=== PATIENT | male | born 1995 | race Two or more races ===

== ENCOUNTER 2021-07-17 10:41 | Emergency (ER) | payer MEDICAID, OTHER ==
[~2021-07-17] VITALS: Ht 175.3 cm; Wt 107.5 kg
[2021-07-17 10:57] VITALS: BP 140/65
[2021-07-17 12:23] LABS: Basophils # (auto) 0.3 10 ^3/uL (0-0.2); Basophils % (auto) 3.9 % (0.0-2.0); Eosinophils # (auto) 0.2 10 ^3/uL (0-0.8); Hemoglobin 14.5 g/dL (13.5-17.5); Lymphocytes # (auto) 1.6 10 ^3/uL (0.4-5.4); Lymphocytes % (auto) 19.3 % (10.0-50.0); Mean Corpuscular Hemoglobin 27.9 pg (28.0-32.0); Mean Corpuscular Hgb Conc. 33.7 g/dL (32.0-36.0); Mean Corpuscular Volume 82.9 fL (80.0-100.0); Monocytes # (auto) 0.3 10 ^3/uL (0-1.3); Monocytes % (auto) 3.9 % (0.0-12.0); Neutrophils # (auto) 5.7 10 ^3/uL (1.6-8.6); Neutrophils % (auto) 70.9 % (37.0-80.0); Nucleated Red Blood Cells % 0.1 %; Red Blood Cells 5.18 10^6/uL (4.5-5.90); Red Cell Distribution Width 13.7 % (11.8-14.3); White Blood Cell 8.1 10^3/uL (4.4-10.8)
[2021-07-17 12:36] LABS: Albumin 3.9 g/dL (3.4-5.0); Calcium 8.9 mg/dL (8.5-10.1); Potassium 4.1 mmol/L (3.5-5.1)
[2021-07-17 12:45] LABS: BUN/Creatinine Ratio 13.3
[2021-07-17 12:46] LABS: Bilirubin, Total 0.3 mg/dL (0.2-1.0); Total Protein 7.5 g/dL (6.4-8.2)
== END 2021-07-17 14:16 | disposition home or self-care (01) ==
LOC: ER 10:41
DX: R53.1 Weakness (principal); R20.0 Anesthesia of skin; F12.10 Cannabis abuse, uncomplicated; Z20.822 Contact with and (suspected) exposure to COVID-19
CPT/HCPCS: 36415; 70450; 80053; 84484; 85025; 87426; 93005

== ENCOUNTER 2024-03-26 17:30 | Emergency (ER) | payer BC, MEDICAID ==
[~2024-03-26] VITALS: Ht 175.3 cm; Wt 118.3 kg
[2024-03-26 17:47] VITALS: BP 118/88; RESP 16; O2SAT 97
[2024-03-26 18:07] LABS: Urine Bacteria None Seen /hpf (None Seen)
[2024-03-26 18:22] LABS: Basophils # (auto) 0 10 ^3/uL (0-0.2); Basophils % (auto) 0.3 % (0.0-2.0); Eosinophils # (auto) 0.2 10 ^3/uL (0-0.8); Eosinophils % (auto) 1.9 % (0.0-7.0); Hematocrit 43.7 % (41.0-53.0); Hemoglobin 14.7 g/dL (13.5-17.5); Lymphocytes # (auto) 2.4 10 ^3/uL (0.4-5.4); Lymphocytes % (auto) 24.9 % (10.0-50.0); Mean Corpuscular Hemoglobin 27.8 pg (28.0-32.0); Mean Corpuscular Hgb Conc. 33.8 g/dL (32.0-36.0); Mean Corpuscular Volume 82.5 fL (80.0-100.0); Monocytes # (auto) 0.5 10 ^3/uL (0-1.3); Monocytes % (auto) 4.8 % (0.0-12.0); Neutrophils # (auto) 6.6 10 ^3/uL (1.6-8.6); Neutrophils % (auto) 68.1 % (37.0-80.0); Nucleated Red Blood Cells % 0.1 %; Platelet Count (auto) 400 10^3/uL (140-450); Red Blood Cells 5.29 10^6/uL (4.5-5.90); Red Cell Distribution Width 14.3 % (11.8-14.3); White Blood Cell 9.7 10^3/uL (4.4-10.8)
[2024-03-26 18:35] LABS: Alanine Aminotransferase 50 U/L (7-40); Albumin 4.5 g/dL (3.2-4.8); Alkaline Phosphatase 86 U/L (46-116); Anion Gap 7 (5-15); Aspartate Aminotransferase 23 U/L (13-40); BUN/Creatinine Ratio 14.9 (10.0-20.0); Bilirubin, Total 0.3 mg/dL (0.2-1.0); Blood Urea Nitrogen 13 mg/dL (9-23); Calcium 9.8 mg/dL (8.7-10.4); Carbon Dioxide 26 mmol/L (20-31); Chloride 107 mmol/L (98-107); Glucose 96 mg/dL (74-106); Magnesium 1.9 mg/dL (1.6-2.6); Potassium 4.3 mmol/L (3.5-5.1); Sodium 140 mmol/L (136-145); Total Protein 6.7 g/dL (5.7-8.2)
[2024-03-26 18:36] VITALS: PULSE 97
[2024-03-26 18:37] LABS: INR 0.97 (0.9-1.15); Partial Thromboplastin Time 27.6 SEC (24.5-34.5); Prothrombin Time 10.3 sec (9.3-11.8)
[2024-03-26 18:47] LABS: Urine Blood Negative /uL (Negative); Urine Clarity Clear (Clear); Urine Color Light-Yellow (Yellow); Urine Protein, UAD Negative (Negative); Urine Specific Gravity 1.026 (1.001-1.035); Urine Urobilinogen Normal (Negative); Urine WBC 1 /hpf (0 - 3)
[2024-03-26] MEDS ORDERED: ASPirin 81 mg TAB PO ONE (19:00)
== END 2024-03-27 01:14 | disposition home or self-care (01) ==
LOC: ER 17:36
DX: R07.89 Other chest pain (principal); R06.02 Shortness of breath; Z79.899 Other long term (current) drug therapy
CPT/HCPCS: 36415; 71045; 80053; 81001; 83735; 83880; 84484; 85025; 85610; 85730; 93005